=== PATIENT | male | born 1950 | race Caucasian/White ===

== ENCOUNTER 2017-03-13 02:48 | Day surgery (SDC) | payer OTHER ==
[2017-03-13] VITALS (10 sets, daily range): BP systolic 106–160; BP diastolic 67–90
[~2017-03-13] VITALS: Ht 182.9 cm; Wt 97.1 kg
[~2017-03-13 02:48] MED LIST: ASPI-484 PO; ATOR80TA PO; CHOL200074 PO; CLOP75TA52 PO; LISI-410 PO
[2017-03-13] MEDS ORDERED: NS 1000ML 1,000 ML ONE ×2 (05:13→05:41)
[2017-03-13] MEDS ORDERED: HEPARIN ONE (05:41)
[2017-03-13] MEDS ORDERED: SUBLIMAZE ONE (05:42)
[2017-03-13] MEDS ORDERED: VERSED ONE (05:42)
[2017-03-13] MEDS ORDERED: XYLOCAINE ONE (05:42)
[2017-03-13] MEDS ORDERED: NS 1000ML 1,000 ML IV SCH (06:00)
[2017-03-13] MEDS ORDERED: PHENERGAN ONE (06:10)
[2017-03-13] MEDS ORDERED: VALIUM ONE (06:11)
[2017-03-13] MEDS ORDERED: PHENERGAN PO ONE (07:00)
[2017-03-13] MEDS ORDERED: VALIUM PO ONE (07:00)
--- NOTE | 2017-03-13 07:27 | DIREP ---
PROCEDURE:CHEST 2 VIEWS COMPARISON:None. INDICATIONS:PRE OP HEART CATH FINDINGS: LUNGS/PLEURA:Low lung volumes. Mild asymmetric elevation of the right hemidiaphragm. Mild left basilar atelectasis or scarring. No pleural effusion. CARDIAC:Normal cardiac silhouette and normal pulmonary vascularity. Calcified tortuous aorta. MEDIASTINUM:Normal. BONES:Normal. OTHER:No additional findings. CONCLUSION:No acute cardiopulmonary process. Dictated by: Suyapa Pino MD on 03/13/2017 at 07:25 AM
[2017-03-13] MEDS ORDERED: ATROPINE SULFATE ONE (08:15)
--- NOTE | 2017-03-13 09:34 | [facility] ---
DATE OF SERVICE: 03/13/2017 The patient is a 66-year-old male. PRECATHETERIZATION DIAGNOSES: Abnormal myocardial perfusion scan with inferoposterior persistent hypoperfusion, diaphragmatic attenuation versus possible ongoing ischemia, history of CAD, old [place], 4-5 years ago had a stent in the right coronary artery, hypertension, dyslipidemia, preoperative evaluation before right total knee replacement, has had 5 right knee operations in the past. POSTCATHETERIZATION DIAGNOSES: Long left main, appears to be patent. Some calcification is noted in the left main. LAD is tortuous with mild luminal irregularity without any flow obstructive disease. Circumflex is a tortuous vessel with mild luminal irregularity, appears to have no any flow obstruction, codominant right coronary artery with diffuse luminal irregularity. The distal right coronary artery has a stent, which is fully patent without any in-stent stenosis. Left ventricle is normal in size with good wall contractility, ejection fraction of 60%. ANESTHESIA: 2% lidocaine. PREOPERATIVE MEDICATIONS: Phenergan 50 mg p.o., Valium 2.5 mg p.o., Versed 2 mg IV, fentanyl 25 mcg IV. The patient during arterial puncture had a vagal response with severe bradycardia, rate of 40 and was given atropine 2 mg IV with fluid challenge and vital signs were restored back to normal. ANTICOAGULATION: Heparin 2000 units intra-arterially, 2000 units in the flush solution, 1000 units in the dye solution. Dye is Omnipaque, total amount 92 mL. CATHETERS: JL4 6-Norwegian, JR4 6-Norwegian, and 6-Norwegian angled pigtail catheter. ARTERIAL TIME: 8 minutes. FLUOROSCOPY TIME: 3.1 minutes. PROCEDURES: Left heart catheterization, bilateral selective coronary arteriography, left ventriculography and Angio-Seal deployment. NARRATION OF PROCEDURE: Under local anesthesia, the right femoral artery was punctured using open needle technique, and 6-Norwegian Cordis sheath was introduced into the femoral artery. Side port of the sheath was used for continuous monitoring of femoral arterial pressure. Subsequently, JL4 6-Norwegian left Skinny coronary catheter was introduced over a guidewire and navigated across the ascending aorta, and selective cannulation of left coronary artery was achieved. Left coronary arteriography was performed in [place] and REID projections using craniocaudal angulations for adequate visualization of all the branches. This catheter was then exchanged with JR4 6-Norwegian right coronary catheter which was manipulated, and selective cannulation of right coronary artery was achieved. Right coronary arteriography was performed in [place] and AP projections. Right coronary catheter was then exchanged with 6-Norwegian angled pigtail catheter which was navigated across the aortic valve. Hemodynamics were measured, and left ventriculography was performed in 30-degree REID projection using 35 mL of Isovue at 12 mL/sec at 600 PSI. Patient tolerated the procedure well. HEMODYNAMICS: LVEDP is 15 mm, LV pressure 168/15, femoral artery pressure 120/66 with a mean of 80, no gradient across the aorta on pullback of the central catheter. FINAL CONCLUSION: Patent right coronary stent, long left main with calcification without any flow obstruction, tortuous corkscrew LAD without any flow obstruction with luminal irregularity of diffuse nature, a large dominant circumflex with tortuosity without any flow obstruction, codominant right coronary artery with diffuse luminal irregularity with patent right coronary stent, intact LV systolic function. The patient is low cardiac risk for right total knee replacement. Optimization of medical therapy. Laxmichand MD Michelle DR: JERAD/jody JOB# [id number]
== END 2017-03-13 10:45 | disposition home or self-care (01) ==
LOC: SURG 02:48
PROVIDERS: ATTEND Specialist
DX: I25.119 Atherosclerotic heart disease of native coronary artery with unspecified angina pectoris (principal); E78.5 Hyperlipidemia, unspecified; I25.2 Old myocardial infarction; E66.3 Overweight; M19.90 Unspecified osteoarthritis, unspecified site; Z68.29 Body mass index [BMI] 29.0-29.9, adult; Z98.890 Other specified postprocedural states; Z79.899 Other long term (current) drug therapy; Z96.651 Presence of right artificial knee joint
CPT/HCPCS: 36415; 71046; 85610; 85730; 93458; 99152; 99153; C1760; C1894 ×3; J0461; J1644 ×3; J2250; J3010; J7030 ×2; Q9967